=== PATIENT | male | born 1965 | race Caucasian/White ===

== ENCOUNTER → 2023-06-23 06:33 | Day surgery (SDC) | payer OTHER, SELFPAY ==
[2023-06-23 09:38] LABS: Glucose - Point of Care 128 mg/dl (70-99)
== END ==
LOC: GI 06:33
PROVIDERS: ATTENDING PHYSICIAN Internal Medicine Gastroenterology; FAMILY PHYSICIAN Internal Medicine
DX: Z12.11 Encounter for screening for malignant neoplasm of colon (principal); D12.0 Benign neoplasm of cecum; D12.2 Benign neoplasm of ascending colon; D12.3 Benign neoplasm of transverse colon; D12.5 Benign neoplasm of sigmoid colon; K64.8 Other hemorrhoids; K31.89 Other diseases of stomach and duodenum; K31.7 Polyp of stomach and duodenum
CPT/HCPCS: 45385; 43239; 88305; 82962; 88342